=== PATIENT | female | born 1975 | race Caucasian/White ===

== ENCOUNTER 2017-11-10 10:45 | Emergency (ER) | payer MEDICAID ==
[~2017-11-10] VITALS: Ht 167.6 cm; Wt 72.7 kg
[~2017-11-10 10:45] MED LIST: CEPH-357 PO; CLIN300C85 PO; DIPH-423 PO; HYDR28CR14 TOP; IBUP-1986 PO; NO HOME MEDS
[2017-11-10] MEDS ORDERED: LIDOcaine 1.5% w/epinephrine 1:200,000 5ml ampul IJ ONE (11:05)
[2017-11-10] MEDS ORDERED: SULF1TAB48 PO (11:36)
[2017-11-10] MEDS ORDERED: ACET-3067 PO (11:36)
[2017-11-10 11:51] VITALS: BP 132/64
== END 2017-11-10 11:50 | disposition home or self-care (01) ==
LOC: ER 10:46
DX: L02.512 Cutaneous abscess of left hand (principal); Z98.51 Tubal ligation status
CPT/HCPCS: 10060; 99283; A6255; A6266; A6449; J3490

== ENCOUNTER 2018-04-23 01:46 | Emergency (ER) | payer MEDICAID, OTHER ==
[~2018-04-23] VITALS: Ht 170.2 cm; Wt 75.0 kg
[~2018-04-23 01:46] MED LIST changes: +CLIN-96 PO; -CLIN300C85 PO
[2018-04-23] MEDS ORDERED: ALBU18HF2 IH (01:55)
[2018-04-23 02:02] VITALS: BP 156/96
== END 2018-04-23 02:03 | disposition home or self-care (01) ==
LOC: ER 01:47
DX: J06.9 Acute upper respiratory infection, unspecified (principal); Z79.899 Other long term (current) drug therapy; Z98.51 Tubal ligation status; Z87.891 Personal history of nicotine dependence
CPT/HCPCS: 99283

== ENCOUNTER 2021-02-24 03:56 | Emergency (ER) | payer MEDICAID ==
[~2021-02-24] VITALS: Ht 170.2 cm; Wt 74.0 kg
[~2021-02-24 03:56] MED LIST changes: +ALBU18HF2 IH; -CLIN-96 PO; +CLIN-97 PO
[2021-02-24 04:00] VITALS: BP 157/103
[2021-02-24 04:40] LABS: BASOPHILS % (AUTO) 0.7 % (0-1); EOSINOPHILS # (AUTO) 0.1 X10'3 (0-0.9); EOSINOPHILS % (AUTO) 1.5 % (0-6); HEMATOCRIT 31.7 % (35.0-45.0); HEMOGLOBIN 10.8 g/dl (12.0-16.0); LYMPHOCYTES # (AUTO) 0.5 X10'3 (1.1-4.8); LYMPHOCYTES % (AUTO) 8.3 % (21-51); MEAN CORPUSCULAR HEMOGLOBIN 27.3 PG (27.0-31.0); MEAN CORPUSCULAR HGB CONC 34.2 g/dL (33.0-36.5); MONOCYTES # (AUTO) 0.7 X10'3 (0-0.9); MONOCYTES % (AUTO) 11.9 % (2-12); NEUTROPHILS # (AUTO) 4.3 X10'3 (1.8-7.7); NEUTROPHILS % (AUTO) 77.6 % (42-75); PLATELET COUNT 253 X10'3 (140-440); RED BLOOD COUNT 3.96 X10'6 (4.20-5.60); RED CELL DISTRIBUTION WIDTH 15.6 % (11.5-14.5); WHITE BLOOD COUNT 5.5 X10'3 (4.5-11.0)
[2021-02-24] MEDS ORDERED: ciprofloxacin 250mg tablet PO ONE (04:50)
[2021-02-24] MEDS ORDERED: ketorolac trometh. 30mg/ml inj. IM ONE (04:50)
[2021-02-24 04:58] LABS: ALANINE AMINOTRANSFERASE 28 U/L (12-78); ALBUMIN 3.8 G/DL (3.4-5.0); ALBUMIN/GLOBULIN RATIO 1.3 (1.1-1.5); ALKALINE PHOSPHATASE 65 IU/L (46-116); ANION GAP 10 (8-16); ASPARTATE AMINO TRANSFERASE 21 U/L (10-37); BILIRUBIN,TOTAL 0.3 MG/DL (0.1-1.0); BLOOD UREA NITROGEN 13 MG/DL (7-18); BUN/CREATININE RATIO 16.3 (6.6-38.0); CALCIUM 8.6 MG/DL (8.5-10.1); CHLORIDE 104 MMOL/L (99-107); GLUCOSE 91 MG/DL (70-104); POTASSIUM 3.7 MMOL/L (3.5-5.1); SODIUM 137 MMOL/L (135-145); TOTAL CARBON DIOXIDE 22.6 MMOL/L (24-32); TOTAL PROTEIN 6.7 G/DL (6.4-8.2); eGFR 78 ML/MIN
[2021-02-24] MEDS ORDERED: CefTRIAXone 500MG IM Kit w/LIDOcaine IM ONE (05:15)
[2021-02-24] MEDS ORDERED: CefTRIAXone 1000mg IM Kit (w/lidocaine diluent) IM ONE (05:20)
== END 2021-02-24 05:29 | disposition home or self-care (01) ==
LOC: ER 03:57
DX: R51.9 Headache, unspecified (principal); M54.2 Cervicalgia; R53.1 Weakness; R53.83 Other fatigue; Z72.89 Other problems related to lifestyle; Z98.51 Tubal ligation status; Z79.2 Long term (current) use of antibiotics; Z79.899 Other long term (current) drug therapy
CPT/HCPCS: 36415; 80053; 85025; 96372; 99284; J0696; J1885

== ENCOUNTER 2021-05-14 13:02 | Emergency (ER) | payer MEDICAID ==
[~2021-05-14] VITALS: Ht 170.2 cm; Wt 81.8 kg
[2021-05-14 13:25] VITALS: BP 174/110
== END 2021-05-14 17:04 | disposition home or self-care (01) ==
LOC: ER 13:03 → MERGE 13:03 → ER 17:04
DX: S93.402A Sprain of unspecified ligament of left ankle, initial encounter (principal); M25.531 Pain in right wrist; W19.XXXA Unspecified fall, initial encounter; Y93.89 Activity, other specified; Y92.89 Other specified places as the place of occurrence of the external cause; Y99.8 Other external cause status
CPT/HCPCS: 73080; 73610; 99284

== ENCOUNTER 2022-11-22 17:35 | Emergency (ER) | payer MEDICAID ==
[~2022-11-22] VITALS: Ht 167.6 cm; Wt 90.0 kg
[2022-11-22 17:46] VITALS: BP 175/112; PULSE 107; RESP 18; TEMP 98; O2SAT 98
[2022-11-22] MEDS ORDERED: DOXY-1 PO (20:32)
[2022-11-22] MEDS ORDERED: azithromycin 250mg tablet PO ONE (20:35)
[2022-11-22] MEDS ORDERED: CefTRIAXone 250MG IM Kit w/LIDOcaine IM ONE (20:35)
[2022-11-25 08:13] LABS: CHLAMYDIA TRACHOMATIS, NAA Negative (Negative)
== END 2022-11-22 20:56 | disposition home or self-care (01) ==
LOC: ER 17:36
DX: A64 Unspecified sexually transmitted disease (principal); Z79.899 Other long term (current) drug therapy
CPT/HCPCS: 36415; 87491; 87591; 96372; 99283; J0696